=== PATIENT | female | born 1975 | race Asian ===

== ENCOUNTER 2019-07-05 10:41 | Emergency (ER) | payer BC, OTHER ==
[2019-07-05 10:48] VITALS: BMI 31.4
[2019-07-05] MEDS ORDERED: KETOROLAC TROMETHAMINE 60 MG/2 ML VIAL IM ONE (11:35)
--- NOTE | 2019-07-05 12:06 | PDOC ---
History of Present Illness <Rachel Cade - Last Filed: 07/05/19 14:42> - General History Source: Patient Exam Limitations: No Limitations <Dari Hyatt - Last Filed: 07/06/19 07:13> - General Chief Complaint: Pain Stated Complaint: ABD PAIN Time Seen by Provider: 07/05/19 11:23 Past History <Rachel Cade - Last Filed: 07/05/19 14:42> - Travel Traveled outside of the country in the last 30 days: No Close contact w/someone who was outside of country & ill: No - Past Medical History COPD: No - Immunization History Immunization Up to Date: Yes - Suicide/Smoking/Psychosocial Hx Smoking History: Never smoked Hx Alcohol Use: No Drug/Substance Use Hx: No <Dari Hyatt - Last Filed: 07/06/19 07:13> - Past Medical History Allergies/Adverse Reactions: Allergies Allergy/AdvReac Type Severity Reaction Status Date / Time No Known Allergies Allergy Verified 07/05/19 10:45 Home Medications: Ambulatory Orders Ibuprofen 800 mg PO TID #30 tablet 07/05/19 Review of Systems - Review of Systems Able to Perform ROS?: Yes Comments:: 07/05/19 12:06 CONSTITUTIONAL: Absent: fever, chills, diaphoresis, generalized weakness, malaise, loss of appetite HEENT: Absent: rhinorrhea, nasal congestion, throat pain, throat swelling, difficulty swallowing, mouth swelling, ear pain, eye pain, visual Changes CARDIOVASCULAR: Absent: chest pain, loss of consciousness, palpitations, irregular heart rate, peripheral edema RESPIRATORY: Absent: cough, shortness of breath, dyspnea with exertion, orthopnea, wheezing, stridor, hemoptysis GASTROINTESTINAL: Absent: abdominal pain, abdominal distension, nausea, vomiting, diarrhea, constipation, melena, hematochezia GENITOURINARY: Present: pelvic pain Absent: dysuria, frequency, urgency, hesitancy, hematuria, flank pain, genital pain MUSCULOSKELETAL: Absent: myalgia, arthralgia, joint swelling SKIN: Absent: rash, itching, pallor HEMATOLOGIC/IMMUNOLOGIC: Absent: easy bleeding, easy bruising, lymphadenopathy, frequent infections ENDOCRINE: Absent: unexplained weight gain, unexplained weight loss, heat intolerance, cold intolerance NEUROLOGIC: Absent: headache, focal weakness or paresthesias, dizziness, unsteady gait, seizure, mental status changes, bladder or bowel incontinence PSYCHIATRIC: Absent: anxiety, depression, suicidal or homicidal ideation, hallucinations. Is the patient limited Japanese proficient: No <Dari Hyatt - Last Filed: 07/06/19 07:13> *Physical Exam - Vital Signs Last Vital Signs Temp Pulse Resp BP Pulse Ox 97.8 F 63 17 131/97 98 07/05/19 10:45 07/05/19 10:45 07/05/19 10:45 07/05/19 10:45 07/05/19 12:38 <Rachel aCde - Last Filed: 07/05/19 14:42> - Vital Signs Last Vital Signs Temp Pulse Resp BP Pulse Ox 97.8 F 63 17 131/97 98 07/05/19 10:45 07/05/19 10:45 07/05/19 10:45 07/05/19 10:45 07/05/19 10:45 - Physical Exam Comments: 07/05/19 12:06 GENERAL: Well developed, well nourished. Awake and alert. No acute distress. HEENT: Normocephalic, atraumatic. PERRLA, EOMI. No conjunctival pallor. Sclera are non- icteric. Moist mucous membranes. Oropharynx is clear. NECK: Supple. Full ROM. No JVD. Carotid pulses 2+ and symmetric, without bruits. No thyromegaly. No lymphadenopathy. CARDIOVASCULAR: Regular rate and rhythm. No murmurs, rubs, or gallops. Distal pulses are 2+ and symmetric. PULMONARY: No evidence of respiratory distress. Lungs clear to auscultation bilaterally. No wheezing, rales or rhonchi. ABDOMINAL: Soft. Non-tender. Non-distended. No rebound or guarding. No organomegaly. Normoactive bowel sounds. MUSCULOSKELETAL Normal range of motion at all joints. No bony deformities or tenderness. No CVA tenderness. EXTREMITIES: No cyanosis. No clubbing. No edema. No calf tenderness. SKIN: Warm and dry. Normal capillary refill. No rashes. No jaundice. NEUROLOGICAL: Alert, awake, appropriate. Cranial nerves 2-12 intact. No deficits to light touch and temperature in face, upper extremities and lower extremities. No motor deficits in the in face, upper extremities and lower extremities. Normoreflexic in the upper and lower extremities. Normal speech. Toes are down- going bilaterally. Gait is normal without ataxia. PSYCHIATRIC: Cooperative. Good eye contact. Appropriate mood and affect. Pelvic: External genitalia normal without lesions. Vaginal vault is clear without blood or discharge. Cervix is long and closed. No cervical motion tenderness. Uterus is nontender and normal in size. Adnexa with L sided tenderness without masses. <Dari Hyatt - Last Filed: 07/06/19 07:13> ED Treatment Course - LABORATORY CBC & Chemistry Diagram: 07/05/19 12:15 07/05/19 12:15 - ADDITIONAL ORDERS Additional order review: Laboratory Results 07/05/19 12:15 Urine Color Yellow Urine Appearance Clear Urine pH 5.5 Ur Specific [place] 1.012 Urine Protein Negative Urine Glucose (UA) Negative Urine Ketones Negative Urine Blood Negative Urine Nitrite Negative Urine Bilirubin Negative Urine Urobilinogen 0.2 Ur Leukocyte Esterase Negative - Medications Given in the ED: ED Medications Discontinued Medications Generic Name Dose Route Start Last Admin Trade Name Vicenteq PRN Reason Stop Dose Admin Ketorolac Tromethamine 60 mg 07/05/19 11:35 07/05/19 12:25 Toradol Injection - IM 07/05/19 11:36 60 mg ONCE ONE Administration <Rachel Cade - Last Filed: 07/05/19 14:42> - LABORATORY CBC & Chemistry Diagram: 07/05/19 12:15 07/05/19 12:15 <Dari Hyatt - Last Filed: 07/06/19 07:13> Medical Decision Making - Medical Decision Making 07/05/19 12:56 The patient was seen and evaluated in conjunction with midlevel provider under my direct supervision, ancillary studies were reviewed. I agree with the plan as outlined SENAIT Hyatt. HPI, workup/dispo as outlined. VS reviewed, wnl. labs unremarkable, UA wnl TVUS with left ovarian cyst, fibroid uterus. likely etiology of sx. 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 07/05/19 14:42 <Rachel Cade - Last Filed: 07/05/19 14:42> - Medical Decision Making 07/05/19 12:08 The patient is a 43-year-old female past medical history of ovarian cysts, who presents to the ER today with left-sided pelvic pain. She states that she does have a cyst on that side is causing her more pain lately. She states the pain alternates between a sharp pressure like pain and now she has pain radiating down her leg. She was evaluated 2 days ago by her [employer]. She states she is supposed to go for an MRI to evaluate the cyst. she has tried taking tramadol with no relief of her symptoms.She states that she has some dysuria. Denies fevers, chills, nausea, vomiting, diarrhea, constipation, discharge. She states that her last menstrual cycle was last week. A/P: L adnexal pain On exam TTP with bimanual at L adenxa Labs, Urine, TVUS obtained Toradol given Labs unremarkable; unlikely an infectious process as WBC WNL Urine without infection TVUS shows a [id number] L ovarian cyst and a uterine fibriod. When discussed with patient; states that the sizes are about the same from her previous US at her doctors office Pt reports pain has decreased with Toradol Suspect increased pain from cyst Will dc home with motrin for pain control in addition to her tramadol Pt to follow up with Dr. Anaya this week I discussed the physical exam findings, ancillary test results and final diagnoses with the patient. I answered all of the patient's questions. The patient was satisfied with the care received and felt comfortable with the discharge plan and treatment plan. The Patient agrees to follow up with the primary care physician/specialist within 24-72 hours. Return precautions were given. <Dari Hyatt - Last Filed: 07/06/19 07:13> *DC/Admit/Observation/Transfer <Rachel Cade - Last Filed: 07/05/19 14:42> - Discharge Dispostion Decision to Admit order: No <Dari Hyatt - Last Filed: 07/06/19 07:13> Diagnosis at time of Disposition: Ovarian cyst Qualifiers: Laterality: left Qualified Code(s): N83.202 - Unspecified ovarian cyst, left side - Discharge Dispostion Disposition: HOME Condition at time of disposition: Stable - Prescriptions Prescriptions: Ibuprofen 800 mg PO TID #30 tablet - Referrals Referrals: Lissett English MD [Staff Physician] - - Patient Instructions Printed Discharge Instructions: DI for Ovarian Cyst Additional Instructions: You were evaluated for your ovarian cyst today. It is most likely the cause of your pain. Your blood work and urine were normal Your ultrasound report is attached Please take Motrin 800 mg every 8 hours starting tonight before bed. you may take the tramadol as previously prescribed as needed for pain Please follow-up with your [employer] DES[employer]ER this week. Return to the ER for worsening pain, vomiting or if you've any changes in your symptoms. - Post Discharge Activity Forms/Work/School Notes: Back to Work
[2019-07-05] MEDS ORDERED: KETOROLAC TROMETHAMINE 60 MG/2 ML VIAL ONE (12:13)
[2019-07-05 12:46] LABS: PH,URINE 5.5 (5.0-8.0); URINE APPEARANCE CLEAR; URINE BILIRUBIN NEGATIVE (NEGATIVE); URINE COLOR YELLOW; URINE GLUCOSE (UA) NEGATIVE (NEGATIVE); URINE KETONE NEGATIVE (NEGATIVE); URINE LEUK ESTERASE NEGATIVE (NEGATIVE); URINE NITRITE NEGATIVE (NEGATIVE); URINE PROTEIN NEGATIVE (NEGATIVE); URINE UROBILINOGEN 0.2 mg/dL (0.2-1.0)
[2019-07-05 13:03] LABS: INR 1.11 (0.83-1.09); PROTHROMBIN TIME (PATIENT) 13.1 SEC (9.7-13.0)
[2019-07-05 13:09] LABS: BASO % 0.5 % (0-2.0); EOS % 2.7 % (0-4.5); HEMATOCRIT 34.7 % (32.4-45.2); HEMOGLOBIN 11.3 GM/dL (10.7-15.3); LYMPH % 20.6 % (8-40); MCH 25.1 pg (25.7-33.7); MCHC 32.5 g/dl (32.0-36.0); MEAN CELL VOLUME 77.3 fl (80-96); MEAN PLT VOLUME 10.5 fl (7.5-11.1); MONO % 6.1 % (3.8-10.2); NEUT % 70.1 % (42.8-82.8); PLATELET COUNT 187 K/MM3 (134-434); RBC 4.49 M/mm3 (3.60-5.2); RDW 15.7 % (11.6-15.6); WHITE BLOOD COUNT 5.7 K/mm3 (4.0-10.0)
[2019-07-05 13:10] LABS: ALBUMIN 3.6 g/dl (3.4-5.0); BILIRUBIN,TOTAL 0.2 mg/dL (0.2-1); CALCIUM 9.1 mg/dL (8.5-10.1); CREATININE 0.7 mg/dL (0.55-1.3); POTASSIUM 3.9 mmol/L (3.5-5.1)
[2019-07-05 15:26] VITALS: BP 145/85; PULSE 60; TEMP 97.9
== END 2019-07-05 15:34 | disposition home or self-care (01) ==
LOC: JER 10:41
PROC: 3E0233Z Introduction of Anti-inflammatory into Muscle, Percutaneous Approach (ICD-10-PCS; principal; 2019-07-05)
DX: N83.202 Unspecified ovarian cyst, left side (principal)
CPT/HCPCS: 36415; 76830-TC; 80053; 81003; 84703; 85025; 85610; 99283-25

== ENCOUNTER 2024-04-04 14:04 | Emergency (ER) | payer BC ==
[2024-04-04 14:11] VITALS: RESP 18; BMI 32.9
[2024-04-04] MEDS ORDERED: ACETAMINOPHEN INJECTION 100 ML IVPB ONE (15:33)
[2024-04-04] MEDS ORDERED: METOCLOPRAMIDE HCL INJECTION 10 MG/2 ML VIAL ONE (15:33)
[2024-04-04] MEDS: METOCLOPRAMIDE HCL INJECTION 10 MG/2 ML VIAL IVPB ONE (15:55)
[2024-04-04] MEDS: LACTATED RINGERS SOLUTION 1000 ML INFUS.BAG IV ONE (15:55)
[2024-04-04] MEDS: ACETAMINOPHEN 1000 MG/100 ML BAG IVPB ONE (15:55)
[2024-04-04 15:58] LABS: BASO % 0.6 % (0-2.0); EOS % 5.2 % (0-4.5); HEMATOCRIT 42.8 % (32.4-45.2); HEMOGLOBIN 14.3 GM/dL (10.7-15.3); MCH 26.7 pg (25.7-33.7); MCHC 33.4 g/dl (32.0-36.0); MEAN CELL VOLUME 79.8 fl (80-96); MEAN PLT VOLUME 10.4 fl (7.5-11.1); MONO % 6.2 % (3.8-10.2); PLATELET COUNT 202 10^3/uL (134-434); RBC 5.37 M/mm3 (3.60-5.2); RDW 14.8 % (11.6-15.6); WHITE BLOOD COUNT 6.3 K/mm3 (4.0-10.0)
[2024-04-04 16:27] LABS: POTASSIUM 3.9 mmol/L (3.5-5.1)
[2024-04-04 16:29] LABS: ALBUMIN 3.8 g/dl (3.4-5.0); CALCIUM 9.6 mg/dL (8.5-10.1)
[2024-04-04 16:30] LABS: BLOOD UREA NITROGEN 9.2 mg/dL (7-18)
[2024-04-04 16:32] LABS: CREATININE 0.7 mg/dL (0.55-1.3)
[2024-04-04 16:34] LABS: BILIRUBIN,TOTAL 0.3 mg/dL (0.2-1); TOT PROT 7.3 g/dl (6.4-8.2)
[2024-04-04 18:20] VITALS: TEMP 97.7
[2024-04-04 20:47] VITALS: BP 161/104; PULSE 53
== END 2024-04-04 20:47 | disposition home or self-care (01) ==
LOC: JER 14:04
PROC: 3E033NZ Introduction of Analgesics, Hypnotics, Sedatives into Peripheral Vein, Percutaneous Approach (ICD-10-PCS; principal; 2024-04-04)
PROC: 3E033GC Introduction of Other Therapeutic Substance into Peripheral Vein, Percutaneous Approach (ICD-10-PCS; 2024-04-04)
DX: R20.0 Anesthesia of skin (principal); R51.9 Headache, unspecified; R11.0 Nausea; R20.2 Paresthesia of skin
CPT/HCPCS: 36415; 70450-TC; 80053; 85025; 99284-25; J0131